=== PATIENT | male | born 1955 | race Caucasian/White ===

== ENCOUNTER 2023-05-28 14:05 | Inpatient (IN) | payer OTHER ==
[2023-05-28 15:46] LABS: BASO % 0.9 % (0-2.0); EOS % 0.8 % (0-4.5); HEMATOCRIT 37.9 % (35.4-49); HEMOGLOBIN 12.7 GM/dL (11.7-16.9); LYMPH % 26.3 % (8-40); MCH 30.7 pg (25.7-33.7); MCHC 33.4 g/dl (32.0-35.9); MEAN CELL VOLUME 92.1 fl (80-96); MEAN PLT VOLUME 9.1 fl (7.5-11.1); MONO % 5.4 % (3.8-10.2); NEUT % 66.6 % (42.8-82.8); PLATELET COUNT 353 10^3/uL (134-434); RBC 4.12 M/mm3 (4.00-5.60); RDW 13.6 % (11.9-15.9); WHITE BLOOD COUNT 9.8 K/mm3 (4.0-10.0)
[2023-05-28 15:58] LABS: EPI CELLS 6 /uL (0-25.1); HYALINE CASTS 0 /uL (0-3.1); PH,URINE 6.5 (5.0-8.0); URINE APPEARANCE CLOUDY; URINE BACTERIA 5 /uL (0-1359); URINE BILIRUBIN NEGATIVE (NEGATIVE); URINE COLOR YELLOW; URINE GLUCOSE (UA) NEGATIVE (NEGATIVE); URINE KETONE NEGATIVE (NEGATIVE); URINE LEUK ESTERASE NEGATIVE (NEGATIVE); URINE NITRITE NEGATIVE (NEGATIVE); URINE PROTEIN TRACE (NEGATIVE); URINE RBC 34 /uL (0-23.9); URINE WBC 4 /uL (0-25.8)
[2023-05-28 16:16] LABS: POTASSIUM 4.5 mmol/L (3.5-5.1)
[2023-05-28 16:18] LABS: CALCIUM 12.2 mg/dL (8.5-10.1)
[2023-05-28 16:19] LABS: BLOOD UREA NITROGEN 17.5 mg/dL (7-18)
[2023-05-28 16:22] LABS: CREATININE 1.3 mg/dL (0.55-1.3)
[2023-05-28 16:23] LABS: TOT PROT 8.3 g/dl (6.4-8.2)
[2023-05-28 16:24] LABS: BILIRUBIN,TOTAL 0.6 mg/dL (0.2-1)
[2023-05-29] MEDS: SODIUM CHLORIDE 0.45% 1,000 ML IV SCH ×2 (01:24→12:12)
[2023-05-29 07:23] LABS: BASO % 0.6 % (0-2.0); EOS % 1.7 % (0-4.5); HEMATOCRIT 36.1 % (35.4-49); HEMOGLOBIN 11.9 GM/dL (11.7-16.9); LYMPH % 25.2 % (8-40); MCH 30.1 pg (25.7-33.7); MEAN CELL VOLUME 91.3 fl (80-96); MEAN PLT VOLUME 9.6 fl (7.5-11.1); MONO % 4.4 % (3.8-10.2); NEUT % 68.1 % (42.8-82.8); PLATELET COUNT 358 10^3/uL (134-434); POTASSIUM 4.2 mmol/L (3.5-5.1); RBC 3.95 M/mm3 (4.00-5.60); RDW 13.5 % (11.9-15.9); WHITE BLOOD COUNT 9.4 K/mm3 (4.0-10.0)
[2023-05-29 07:33] LABS: ALBUMIN 2.8 g/dl (3.4-5.0); BLOOD UREA NITROGEN 19.8 mg/dL (7-18); CALCIUM 11.9 mg/dL (8.5-10.1); MAGNESIUM 2.7 mg/dL (1.8-2.4)
[2023-05-29 07:35] LABS: CREATININE 1.1 mg/dL (0.55-1.3); PHOSPHOROUS 3.3 mg/dL (2.5-4.9)
[2023-05-29 07:37] LABS: BILIRUBIN,TOTAL 0.6 mg/dL (0.2-1); TOT PROT 7.8 g/dl (6.4-8.2)
[2023-05-29] MEDS: ENOXAPARIN NA (PORCINE) 40 MG/0.4 ML DISP.SYRIN SQ SCH (12:08)
[2023-05-29 20:20] VITALS: BMI 28.9
[2023-05-29] MEDS: MINERAL OIL ENEMA 133 ML ENEMA RC ONE (22:09)
[2023-05-29] MEDS: FLU VACCINE (FLULAVAL) PF 60 MCG/0.5 ML SYRINGE 2023-2024 IM ONE (22:40)
[2023-05-30 09:37] LABS: BASO % 0.6 % (0-2.0); EOS % 1.6 % (0-4.5); HEMATOCRIT 34.1 % (35.4-49); HEMOGLOBIN 11.3 GM/dL (11.7-16.9); LYMPH % 28.1 % (8-40); MCH 30.1 pg (25.7-33.7); MEAN CELL VOLUME 91.2 fl (80-96); MEAN PLT VOLUME 9.4 fl (7.5-11.1); MONO % 4.2 % (3.8-10.2); NEUT % 65.5 % (42.8-82.8); PLATELET COUNT 298 10^3/uL (134-434); RBC 3.74 M/mm3 (4.00-5.60); RDW 13.2 % (11.9-15.9); WHITE BLOOD COUNT 7.5 K/mm3 (4.0-10.0)
[2023-05-30] MEDS: MINERAL OIL ENEMA 133 ML ENEMA RC ONE (09:50)
[2023-05-30 10:03] LABS: POTASSIUM 3.8 mmol/L (3.5-5.1)
[2023-05-30] MEDS: FLU VACCINE (FLULAVAL) PF 60 MCG/0.5 ML SYRINGE 2023-2024 IM ONE (10:04)
[2023-05-30 10:13] LABS: ALBUMIN 2.4 g/dl (3.4-5.0)
[2023-05-30 10:14] LABS: BILIRUBIN,TOTAL 0.7 mg/dL (0.2-1); TOT PROT 6.9 g/dl (6.4-8.2)
[2023-05-30 10:19] LABS: BLOOD UREA NITROGEN 20.9 mg/dL (7-18)
[2023-05-30 10:20] LABS: CALCIUM 11.1 mg/dL (8.5-10.1)
[2023-05-30 10:21] LABS: MAGNESIUM 2.9 mg/dL (1.8-2.4)
[2023-05-30] MEDS ORDERED: ACETAMINOPHEN 1000 MG/100 ML BAG IVPB PRN (12:36)
[2023-05-30] MEDS ORDERED: DEXTROSE 5%-WATER - 1,000 ML with POTASSIUM CHLORIDE 10 MEQ IV SCH (13:15)
[2023-05-30] MEDS: COLLAGENASE CLOSTRIDIUM HIST. 30 GRAMS TUBE TP SCH (14:54)
[2023-05-30] MEDS: POTASSIUM CHLORIDE 10 MEQ in DEXTROSE 5%-WATER - 1,000 ML IV SCH (14:55)
[2023-05-30] MEDS ORDERED: SODIUM CHLORIDE 0.45% 1,000 ML IV SCH (15:45)
[2023-05-30] MEDS: AMINO ACIDS 4.25%/D5W 1,000 ML IV SCH (16:25)
[2023-05-30] MEDS: DEXTROSE 5%-0.45% SALINE 1,000 ML IV SCH (16:26)
[2023-05-30] MEDS: THIAMINE HCL 200 MG/2 ML VIAL IVPB SCH (16:33)
[2023-05-30] MEDS: BISACODYL 10 MG SUPP.RECT PR ONE (17:13)
[2023-05-31 09:39] LABS: BASO % 0.4 % (0-2.0); EOS % 1.8 % (0-4.5); HEMATOCRIT 32.5 % (35.4-49); HEMOGLOBIN 10.7 GM/dL (11.7-16.9); LYMPH % 25.4 % (8-40); MCH 29.7 pg (25.7-33.7); MCHC 32.9 g/dl (32.0-35.9); MEAN CELL VOLUME 90.3 fl (80-96); MEAN PLT VOLUME 9.2 fl (7.5-11.1); MONO % 4.6 % (3.8-10.2); NEUT % 67.8 % (42.8-82.8); PLATELET COUNT 274 10^3/uL (134-434); RDW 12.9 % (11.9-15.9); WHITE BLOOD COUNT 7.8 K/mm3 (4.0-10.0)
[2023-05-31 09:55] LABS: POTASSIUM 3.4 mmol/L (3.5-5.1)
[2023-05-31 09:59] LABS: ALBUMIN 2.3 g/dl (3.4-5.0); BLOOD UREA NITROGEN 16.8 mg/dL (7-18); CALCIUM 10.6 mg/dL (8.5-10.1); MAGNESIUM 2.6 mg/dL (1.8-2.4)
[2023-05-31 10:04] LABS: BILIRUBIN,TOTAL 0.8 mg/dL (0.2-1); TOT PROT 6.5 g/dl (6.4-8.2)
[2023-05-31] MEDS: KCL 10 MEQ IVPB 10 MEQ/100 ML INFUS.BAG IVPB SCH (16:17)
[2023-05-31] MEDS: D5-1/2NS+20 MEQ KCL - 20 MEQ/1,000 ML INFUS.BAG IV SCH (17:25)
[2023-06-01 09:14] LABS: BASO % 0.4 % (0-2.0); EOS % 1.1 % (0-4.5); HEMATOCRIT 30.2 % (35.4-49); HEMOGLOBIN 10.2 GM/dL (11.7-16.9); LYMPH % 23.9 % (8-40); MCH 30.1 pg (25.7-33.7); MCHC 33.8 g/dl (32.0-35.9); MEAN PLT VOLUME 9.4 fl (7.5-11.1); MONO % 5.1 % (3.8-10.2); NEUT % 69.5 % (42.8-82.8); PLATELET COUNT 310 10^3/uL (134-434); RBC 3.39 M/mm3 (4.00-5.60); RDW 13.1 % (11.9-15.9); WHITE BLOOD COUNT 7.7 K/mm3 (4.0-10.0)
[2023-06-01 09:42] LABS: POTASSIUM 3.8 mmol/L (3.5-5.1)
[2023-06-01 09:57] LABS: CALCIUM 10.5 mg/dL (8.5-10.1)
[2023-06-01 09:59] LABS: ALBUMIN 2.2 g/dl (3.4-5.0); BLOOD UREA NITROGEN 13.4 mg/dL (7-18); MAGNESIUM 2.3 mg/dL (1.8-2.4)
[2023-06-01 10:01] LABS: CREATININE 0.9 mg/dL (0.55-1.3)
[2023-06-01 10:03] LABS: BILIRUBIN,TOTAL 1.1 mg/dL (0.2-1); TOT PROT 6.8 g/dl (6.4-8.2)
[2023-06-01] MEDS: PANTOPRAZOLE SODIUM 40 MG VIAL IVPUSH SCH (14:32)
[2023-06-01] MEDS: AMINO ACIDS 4.25%/D5W 1,000 ML IV SCH (14:32)
[2023-06-02 10:11] LABS: BASO % 0.3 % (0-2.0); EOS % 1.4 % (0-4.5); LYMPH % 27.3 % (8-40); MCH 30.6 pg (25.7-33.7); MCHC 34.5 g/dl (32.0-35.9); MEAN CELL VOLUME 88.6 fl (80-96); MEAN PLT VOLUME 9.2 fl (7.5-11.1); MONO % 5.1 % (3.8-10.2); NEUT % 65.9 % (42.8-82.8); PLATELET COUNT 309 10^3/uL (134-434); RBC 3.27 M/mm3 (4.00-5.60); WHITE BLOOD COUNT 7.5 K/mm3 (4.0-10.0)
[2023-06-02 10:49] LABS: POTASSIUM 3.6 mmol/L (3.5-5.1)
[2023-06-02 10:54] LABS: CALCIUM 10.6 mg/dL (8.5-10.1)
[2023-06-02 10:56] LABS: ALBUMIN 2.1 g/dl (3.4-5.0); BLOOD UREA NITROGEN 15.3 mg/dL (7-18)
[2023-06-02 10:58] LABS: CREATININE 0.9 mg/dL (0.55-1.3)
[2023-06-02 11:00] LABS: TOT PROT 6.8 g/dl (6.4-8.2)
[2023-06-03 10:30] LABS: INR 1.39 (0.83-1.09); PROTHROMBIN TIME (PATIENT) 16.1 SEC (9.7-13.0)
[2023-06-03] MEDS: ACETAMINOPHEN 1000 MG/100 ML BAG IVPB PRN (12:32)
[2023-06-03] MEDS: BISACODYL 10 MG SUPP.RECT PR ONE (12:33)
[2023-06-04 10:04] LABS: POTASSIUM 3.7 mmol/L (3.5-5.1)
[2023-06-04 10:12] LABS: CALCIUM 11.6 mg/dL (8.5-10.1)
[2023-06-04 10:13] LABS: ALBUMIN 2.3 g/dl (3.4-5.0); BLOOD UREA NITROGEN 18.9 mg/dL (7-18); HEMATOCRIT 32.1 % (35.4-49); MCH 30.4 pg (25.7-33.7); MCHC 34.3 g/dl (32.0-35.9); MEAN CELL VOLUME 88.6 fl (80-96); MEAN PLT VOLUME 9.9 fl (7.5-11.1); PLATELET COUNT 399 10^3/uL (134-434); RBC 3.62 M/mm3 (4.00-5.60); RDW 13.3 % (11.9-15.9)
[2023-06-04 10:16] LABS: CREATININE 0.8 mg/dL (0.55-1.3)
[2023-06-04 10:17] LABS: BILIRUBIN,TOTAL 0.7 mg/dL (0.2-1); TOT PROT 7.3 g/dl (6.4-8.2)
[2023-06-04 12:15] LABS: ANISOCYTOSIS 0; MACROCYTOSIS 0; OVALOCYTE 1+
[2023-06-05] MEDS: ACETAMINOPHEN 1000 MG/100 ML BAG IVPB PRN (09:47)
[2023-06-05 10:18] LABS: BASO % 0.4 % (0-2.0); EOS % 0.8 % (0-4.5); HEMATOCRIT 30.3 % (35.4-49); HEMOGLOBIN 10.5 GM/dL (11.7-16.9); LYMPH % 14.5 % (8-40); MCH 30.3 pg (25.7-33.7); MCHC 34.8 g/dl (32.0-35.9); MEAN CELL VOLUME 87.1 fl (80-96); MEAN PLT VOLUME 8.6 fl (7.5-11.1); NEUT % 80.3 % (42.8-82.8); PLATELET COUNT 370 10^3/uL (134-434); RBC 3.48 M/mm3 (4.00-5.60); RDW 13.2 % (11.9-15.9); WHITE BLOOD COUNT 8.7 K/mm3 (4.0-10.0)
[2023-06-05 10:45] LABS: POTASSIUM 3.2 mmol/L (3.5-5.1)
[2023-06-05 11:02] LABS: ALBUMIN 2.4 g/dl (3.4-5.0); BLOOD UREA NITROGEN 13.5 mg/dL (7-18)
[2023-06-05 11:03] LABS: BILIRUBIN,TOTAL 0.9 mg/dL (0.2-1); TOT PROT 7.1 g/dl (6.4-8.2)
[2023-06-05 11:04] LABS: CALCIUM 10.4 mg/dL (8.5-10.1)
[2023-06-05 11:05] LABS: CREATININE 0.7 mg/dL (0.55-1.3)
[2023-06-05] MEDS ORDERED: MIDAZOLAM HCL 2 MG/2 ML SINGLE DOSE VIAL ONE (11:46)
[2023-06-05] MEDS ORDERED: GLUCAGON 1 MG KIT ONE (11:46)
[2023-06-05] MEDS ORDERED: FENTANYL CITRATE/PF 50 MCG/ML VIAL ONE ×2 (11:46→12:21)
[2023-06-05] MEDS: MIDAZOLAM HCL 2 MG/2 ML SINGLE DOSE VIAL IVPB SCH (12:10)
[2023-06-05] MEDS: GLUCAGON 1 MG KIT IVPUSH ONE (12:17)
[2023-06-05 16:29] LABS: POTASSIUM 3.6 mmol/L (3.5-5.1)
[2023-06-05 16:31] LABS: CALCIUM 10.9 mg/dL (8.5-10.1)
[2023-06-05 16:32] LABS: ALBUMIN 2.4 g/dl (3.4-5.0); BLOOD UREA NITROGEN 13.6 mg/dL (7-18)
[2023-06-05 16:35] LABS: CREATININE 0.8 mg/dL (0.55-1.3)
[2023-06-05 16:36] LABS: TOT PROT 7.8 g/dl (6.4-8.2)
[2023-06-05] MEDS: KCL 10 MEQ IVPB 10 MEQ/100 ML INFUS.BAG IVPB SCH (18:42)
[2023-06-06 10:02] LABS: EOS % 0.7 % (0-4.5); HEMATOCRIT 32.1 % (35.4-49); HEMOGLOBIN 11.1 GM/dL (11.7-16.9); LYMPH % 14.7 % (8-40); MCH 29.7 pg (25.7-33.7); MCHC 34.4 g/dl (32.0-35.9); MEAN CELL VOLUME 86.3 fl (80-96); MEAN PLT VOLUME 7.8 fl (7.5-11.1); MONO % 3.3 % (3.8-10.2); NEUT % 80.3 % (42.8-82.8); PLATELET COUNT 409 10^3/uL (134-434); RBC 3.72 M/mm3 (4.00-5.60); RDW 13.4 % (11.9-15.9)
[2023-06-06 10:20] LABS: POTASSIUM 3.4 mmol/L (3.5-5.1)
[2023-06-06 10:23] LABS: CALCIUM 11.7 mg/dL (8.5-10.1)
[2023-06-06 10:24] LABS: ALBUMIN 2.4 g/dl (3.4-5.0); BLOOD UREA NITROGEN 12.9 mg/dL (7-18)
[2023-06-06 10:27] LABS: CREATININE 0.8 mg/dL (0.55-1.3)
[2023-06-06 10:29] LABS: BILIRUBIN,TOTAL 0.9 mg/dL (0.2-1); TOT PROT 7.4 g/dl (6.4-8.2)
[2023-06-06] MEDS: KCL 10 MEQ IVPB 10 MEQ/100 ML INFUS.BAG IVPB SCH (14:01)
[2023-06-07] MEDS: POLYETHYLENE GLYCOL (HEALTHYLAX) 3350 17 GM PACKET GT SCH (09:29)
[2023-06-07] MEDS: AMINO ACIDS/PROTEIN HYDROLYS 30 ML LIQUID.PKT GT SCH (09:32)
[2023-06-07] MEDS: ASCORBIC ACID 250 MG TABLET (FP) GT SCH (09:33)
[2023-06-07] MEDS: MULTIVIT-MINERALS ORAL LIQUID GT SCH (10:31)
[2023-06-07] MEDS: CINACALCET HCL 30 MG TAB (FP) PO SCH (10:35)
[2023-06-07 11:05] LABS: BASO % 0.5 % (0-2.0); EOS % 2.7 % (0-4.5); HEMOGLOBIN 10.3 GM/dL (11.7-16.9); LYMPH % 24.7 % (8-40); MCH 30.1 pg (25.7-33.7); MCHC 34.5 g/dl (32.0-35.9); MEAN CELL VOLUME 87.1 fl (80-96); MEAN PLT VOLUME 7.9 fl (7.5-11.1); MONO % 5.2 % (3.8-10.2); NEUT % 66.9 % (42.8-82.8); PLATELET COUNT 401 10^3/uL (134-434); RBC 3.44 M/mm3 (4.00-5.60); RDW 13.5 % (11.9-15.9); WHITE BLOOD COUNT 7.6 K/mm3 (4.0-10.0)
[2023-06-07 11:29] LABS: POTASSIUM 3.5 mmol/L (3.5-5.1)
[2023-06-07 11:32] LABS: ALBUMIN 2.2 g/dl (3.4-5.0); CALCIUM 11.2 mg/dL (8.5-10.1)
[2023-06-07 11:33] LABS: BLOOD UREA NITROGEN 14.4 mg/dL (7-18)
[2023-06-07 11:35] LABS: CREATININE 0.7 mg/dL (0.55-1.3)
[2023-06-07 11:37] LABS: BILIRUBIN,TOTAL 0.4 mg/dL (0.2-1); TOT PROT 6.9 g/dl (6.4-8.2)
[2023-06-07] MEDS ORDERED: POLYETHYLENE GLYCOL (HEALTHYLAX) 3350 17 GM PACKET GT SCH (22:00)
[2023-06-07] MEDS: CINACALCET HCL PEG SCH (22:56)
[2023-06-08 15:42] VITALS: BP 128/74; PULSE 80; RESP 18; TEMP 98.5
== END 2023-06-08 11:24 | DRG 56 ==
LOC: JER 14:05 → JERBED 22:05 → J5S 05-29 19:40 → OBSVTOIN 05-30 10:16 → J5S 06-04 17:22
PROVIDERS: ADMIT Internal Medicine; ATTEND Internal Medicine
PROC: 0Y9K3ZZ Drainage of Right Ankle Region, Percutaneous Approach (ICD-10-PCS; principal; 2023-06-01)
PROC: 0DH63UZ Insertion of Feeding Device into Stomach, Percutaneous Approach (ICD-10-PCS; 2023-06-05)
DX: G30.9 Alzheimer's disease, unspecified (principal); R53.2 Functional quadriplegia; E87.0 Hyperosmolality and hypernatremia; F02.80 Dementia in other diseases classified elsewhere, unspecified severity, without behavioral disturbance, psychotic disturbance, mood disturbance, and anxiety; E78.5 Hyperlipidemia, unspecified; R62.7 Adult failure to thrive; Z68.28 Body mass index [BMI] 28.0-28.9, adult; R73.9 Hyperglycemia, unspecified; E83.52 Hypercalcemia; E86.0 Dehydration; L89.610 Pressure ulcer of right heel, unstageable; R13.10 Dysphagia, unspecified; K59.00 Constipation, unspecified; K76.0 Fatty (change of) liver, not elsewhere classified
CPT/HCPCS: 36415; 49440; 70450-TC; 71045-TC-FY; 71250-TC; 74018-TC-FY; 74230-TC-FY; 76705-TC; 80053; 81003; 82310; 82550; 82553; 82728; 82962; 82977; 83540; 83550; 83735; 83970; 84100; 85025; 85610; 86704; 86705; 86708; 86803; 87070; 87086; 87205; 87340; 87517; 87635; 90686; 92611-GN; 93005; 93010; 99285-25; G0008; G0378; J0131

== ENCOUNTER 2023-09-22 18:18 | Inpatient (IN) | payer OTHER ==
[2023-09-22] MEDS ORDERED: ACETAMINOPHEN INJECTION 100 ML IVPB ONE (19:40)
[2023-09-22 20:48] LABS: HEMATOCRIT 29.6 % (35.4-49); HEMOGLOBIN 9.9 GM/dL (11.7-16.9); RBC 3.53 M/mm3 (4.00-5.60); WHITE BLOOD COUNT 9.9 K/mm3 (4.0-10.0)
[2023-09-22 20:49] LABS: BASO % 0.4 % (0-2.0); LYMPH % 32.2 % (8-40); MCHC 33.3 g/dl (32.0-35.9); MEAN PLT VOLUME 8.1 fl (7.5-11.1); MONO % 5.3 % (3.8-10.2); NEUT % 61.1 % (42.8-82.8); PLATELET COUNT 389 10^3/uL (134-434); RDW 17.1 % (11.9-15.9)
[2023-09-22 20:52] LABS: EPI CELLS 7 /uL (0-25.1); HYALINE CASTS 6 /uL (0-3.1); URINE APPEARANCE CLOUDY; URINE BACTERIA 2783 /uL (0-1359); URINE BILIRUBIN NEGATIVE (NEGATIVE); URINE COLOR YELLOW; URINE GLUCOSE (UA) NEGATIVE (NEGATIVE); URINE KETONE NEGATIVE (NEGATIVE); URINE LEUK ESTERASE 2+ (NEGATIVE); URINE NITRITE NEGATIVE (NEGATIVE); URINE PROTEIN 1+ (NEGATIVE); URINE WBC 769 /uL (0-25.8)
[2023-09-22 21:01] LABS: INR 1.17 (0.83-1.09); PROTHROMBIN TIME (PATIENT) 13.2 SEC (9.7-13.0)
[2023-09-22 21:08] LABS: CHLORIDE 104 mmol/L (98-107); POTASSIUM 4.8 mmol/L (3.5-5.1); SODIUM 137 mmol/L (136-145)
[2023-09-22] MEDS: SODIUM CHLORIDE 0.9% 500 ML INFUS.BAG IV ONE (21:10)
[2023-09-22] MEDS: ACETAMINOPHEN 1000 MG/100 ML BAG IVPB ONE (21:11)
[2023-09-22] MEDS ORDERED: cefTRIAXone SODIUM 1 GM VIAL ONE (21:12)
[2023-09-22 21:13] LABS: CALCIUM 9.2 mg/dL (8.5-10.1)
[2023-09-22 21:14] LABS: ALBUMIN 3.2 g/dl (3.4-5.0); ANION GAP 7 mmol/L (4-13); BLOOD UREA NITROGEN 16.6 mg/dL (7-18); CO2 27 mmol/L (21-32); GLUCOSE,RANDOM 103 mg/dL (74-106); MAGNESIUM 1.9 mg/dL (1.8-2.4)
[2023-09-22 21:17] LABS: CREATININE 0.9 mg/dL (0.55-1.3); SGOT/AST 30 U/L (15-37); SGPT/ALT 22 U/L (13-61)
[2023-09-22 21:18] LABS: BILIRUBIN,TOTAL 0.6 mg/dL (0.2-1); TOT PROT 8.7 g/dl (6.4-8.2)
[2023-09-22 21:20] LABS: ALK PHOS 88 U/L (45-117)
[2023-09-22 22:03] LABS: URINE RBC 28 /uL (0-23.9)
[2023-09-22 22:04] LABS: URINE CRYSTALS MODERATE /hpf
[2023-09-22] MEDS ORDERED: KETOROLAC TROMETHAMINE 30 MG/1 ML VIAL ONE (22:44)
[2023-09-22] MEDS: KETOROLAC TROMETHAMINE 30 MG/1 ML VIAL IVPUSH ONE (22:48)
[2023-09-23] MEDS: methylPREDNISolone NA SUCC 40 MG/1 ML VIAL IVPUSH SCH (00:39)
[2023-09-23] MEDS: REMDESIVIR 200 MG in SODIUM CHLORIDE 250 ML IVPB ONE (00:39)
[2023-09-23] MEDS ORDERED: ASCORBIC ACID 500 MG TABLET (FP) ONE (01:32)
[2023-09-23] MEDS: CINACALCET HCL 30 MG TAB (FP) PO SCH (01:42)
[2023-09-23] MEDS: ASCORBIC ACID 500 MG TABLET (FP) GT SCH (01:42)
[2023-09-23] MEDS ORDERED: methylPREDNISolone NA SUCC 40 MG/1 ML VIAL ONE (03:30)
[2023-09-23 07:19] LABS: HEMATOCRIT 29.7 % (35.4-49); HEMOGLOBIN 9.4 GM/dL (11.7-16.9); MCH 26.9 pg (25.7-33.7); MCHC 31.7 g/dl (32.0-35.9); MEAN CELL VOLUME 84.8 fl (80-96); MEAN PLT VOLUME 8.1 fl (7.5-11.1); PLATELET COUNT 359 10^3/uL (134-434); RDW 17.2 % (11.9-15.9); WHITE BLOOD COUNT 10.1 K/mm3 (4.0-10.0)
[2023-09-23 07:36] LABS: POTASSIUM 4.5 mmol/L (3.5-5.1)
[2023-09-23 07:42] LABS: CALCIUM 8.8 mg/dL (8.5-10.1)
[2023-09-23 07:43] LABS: BLOOD UREA NITROGEN 17.7 mg/dL (7-18); MAGNESIUM 1.9 mg/dL (1.8-2.4)
[2023-09-23 07:45] LABS: CREATININE 0.9 mg/dL (0.55-1.3)
[2023-09-23 07:46] LABS: BILIRUBIN,TOTAL 0.4 mg/dL (0.2-1); PHOSPHOROUS 2.8 mg/dL (2.5-4.9); TOT PROT 8.3 g/dl (6.4-8.2)
[2023-09-23 08:25] LABS: IRON SERUM 15 ug/dL (50-175); TOTAL IRON BINDING CAPACITY 252 ug/dL (250-450)
[2023-09-23] MEDS ORDERED: ACETAMINOPHEN 325 MG TABLET (FP) ONE (08:37)
[2023-09-23] MEDS: ACETAMINOPHEN 650 MG/20.3 ML ORAL SOLUTION (CUPS) PO PRN (08:48)
[2023-09-23] MEDS ORDERED: COLLAGENASE CLOSTRIDIUM HIST. 30 GRAMS TUBE TP SCH (10:00)
[2023-09-23] MEDS ORDERED: ACETAMINOPHEN 650 MG/20.3 ML ORAL SOLUTION (CUPS) PEG PRN (10:30)
[2023-09-23] MEDS: CEFTRIAXONE 1 GM in DEXTROSE 5%-WATER - 50 ML IVPB SCH (11:00)
[2023-09-23] MEDS: REMDESIVIR 100 MG in SODIUM CHLORIDE 250 ML IVPB SCH (11:26)
[2023-09-23] MEDS: PANTOPRAZOLE 20 MG TABLET PO SCH (11:27)
[2023-09-23] MEDS: ZINC SULFATE 220 MG CAPSULE (FP) GT SCH (11:27)
[2023-09-23] MEDS: MULTIVITAMINS (DAILY MVI) TABLET (FP) PO SCH (11:28)
[2023-09-23] MEDS: POLYETHYLENE GLYCOL (HEALTHYLAX) 3350 17 GM PACKET GT SCH (11:30)
[2023-09-23] MEDS: ENOXAPARIN NA (PORCINE) 40 MG/0.4 ML DISP.SYRIN SQ SCH (11:32)
[2023-09-23] MEDS: LACTATED RINGERS SOLUTION 1,000 ML/1,000 ML INFUS.BAG IV SCH (14:40)
[2023-09-23] MEDS: AMINO ACIDS/PROTEIN HYDROLYS 30 ML LIQUID.PKT GT SCH (15:16)
[2023-09-23] MEDS: DONEPEZIL HCL 5 MG TABLET (FP) GT SCH (21:46)
[2023-09-24 09:33] LABS: BASO % 0.1 % (0-2.0); EOS % 0.2 % (0-4.5); HEMATOCRIT 25.3 % (35.4-49); HEMOGLOBIN 8.2 GM/dL (11.7-16.9); MCH 27.5 pg (25.7-33.7); MCHC 32.6 g/dl (32.0-35.9); MEAN CELL VOLUME 84.5 fl (80-96); MEAN PLT VOLUME 7.8 fl (7.5-11.1); MONO % 6.4 % (3.8-10.2); NEUT % 62.3 % (42.8-82.8); PLATELET COUNT 317 10^3/uL (134-434); RDW 17.1 % (11.9-15.9); WHITE BLOOD COUNT 7.5 K/mm3 (4.0-10.0)
[2023-09-24 09:55] LABS: POTASSIUM 3.9 mmol/L (3.5-5.1)
[2023-09-24] MEDS ORDERED: DEXAMETHASONE 4 MG TABLET (FP) PEG SCH (10:00)
[2023-09-24 10:16] LABS: CALCIUM 8.5 mg/dL (8.5-10.1)
[2023-09-24 10:17] LABS: ALBUMIN 2.6 g/dl (3.4-5.0); BLOOD UREA NITROGEN 20.1 mg/dL (7-18)
[2023-09-24 10:20] LABS: CREATININE 0.7 mg/dL (0.55-1.3)
[2023-09-24 10:21] LABS: BILIRUBIN,TOTAL 0.2 mg/dL (0.2-1); TOT PROT 7.2 g/dl (6.4-8.2)
[2023-09-24 13:17] VITALS: BMI 31.8
[2023-09-24 13:36] VITALS: RESP 18
[2023-09-24] MEDS: REMDESIVIR 100 MG in SODIUM CHLORIDE 270 ML IVPB ONE (17:50)
[2023-09-25 08:51] LABS: HEMATOCRIT 27.7 % (35.4-49); HEMOGLOBIN 9.1 GM/dL (11.7-16.9); MCH 27.4 pg (25.7-33.7); MCHC 32.7 g/dl (32.0-35.9); MEAN CELL VOLUME 83.9 fl (80-96); MEAN PLT VOLUME 7.5 fl (7.5-11.1); PLATELET COUNT 361 10^3/uL (134-434); RDW 17.3 % (11.9-15.9); WHITE BLOOD COUNT 5.3 K/mm3 (4.0-10.0)
[2023-09-25 09:08] LABS: POTASSIUM 3.9 mmol/L (3.5-5.1)
[2023-09-25 09:12] LABS: ALBUMIN 2.7 g/dl (3.4-5.0); BLOOD UREA NITROGEN 18.6 mg/dL (7-18); CALCIUM 8.3 mg/dL (8.5-10.1)
[2023-09-25 09:14] LABS: CREATININE 0.7 mg/dL (0.55-1.3)
[2023-09-25 09:17] LABS: BILIRUBIN,TOTAL 0.2 mg/dL (0.2-1); TOT PROT 7.3 g/dl (6.4-8.2)
[2023-09-25] MEDS ORDERED: AMPICILLIN - 1 GM in SODIUM CHLORIDE 100 ML IVPB SCH (21:00)
[2023-09-26 09:38] LABS: HEMATOCRIT 26.8 % (35.4-49); HEMOGLOBIN 8.9 GM/dL (11.7-16.9); MCH 27.6 pg (25.7-33.7); MCHC 33.2 g/dl (32.0-35.9); MEAN CELL VOLUME 83.1 fl (80-96); MEAN PLT VOLUME 7.3 fl (7.5-11.1); PLATELET COUNT 352 10^3/uL (134-434); RBC 3.22 M/mm3 (4.00-5.60); RDW 16.8 % (11.9-15.9)
[2023-09-26 09:54] LABS: POTASSIUM 3.8 mmol/L (3.5-5.1)
[2023-09-26 09:56] LABS: BLOOD UREA NITROGEN 16.7 mg/dL (7-18); CALCIUM 8.5 mg/dL (8.5-10.1)
[2023-09-26 09:59] LABS: CREATININE 0.7 mg/dL (0.55-1.3)
[2023-09-26 11:10] VITALS: BP 122/66; PULSE 92; TEMP 98.7
== END 2023-09-26 15:41 | DRG 871 ==
LOC: JER 18:18 → JERBED 22:27 → J6S 09-23 09:47
PROVIDERS: ADMIT Internal Medicine; ATTEND Internal Medicine
PROC: XW033E5 Introduction of Remdesivir Anti-infective into Peripheral Vein, Percutaneous Approach, New Technology Group 5 (ICD-10-PCS; principal; 2023-09-22)
DX: A41.9 Sepsis, unspecified organism (principal); U07.1 COVID-19; N39.0 Urinary tract infection, site not specified; E78.5 Hyperlipidemia, unspecified; G30.9 Alzheimer's disease, unspecified; F02.80 Dementia in other diseases classified elsewhere, unspecified severity, without behavioral disturbance, psychotic disturbance, mood disturbance, and anxiety; E11.9 Type 2 diabetes mellitus without complications; D50.9 Iron deficiency anemia, unspecified; R13.10 Dysphagia, unspecified; B95.2 Enterococcus as the cause of diseases classified elsewhere; Z93.1 Gastrostomy status
CPT/HCPCS: 0241U-QW; 36415; 71045-TC-FY; 71250-TC; 74018-TC-FY; 76775-TC; 80048; 80053; 81003; 82272; 82550; 82962; 83010; 83540; 83550; 83605; 83615; 83735; 84100; 84484; 85025; 85027; 85045; 85610; 85730; 86140; 87040; 87086; 87186; 87635; 93005; 93010; 99285-25; J0131; J0248

== ENCOUNTER 2024-07-16 11:08 | Inpatient (IN) | payer OTHER ==
[2024-07-16 12:51] LABS: ABSOLUTE IMMATURE GRANULOCYTES 0.04 x10^3/uL (0.0-0.031); BASOPHILS # 0.02 x10^3/uL (0.01-0.08); EOSINOPHILS # 0.33 x10^3/uL (0.04-0.54); HEMATOCRIT 44.3 % (40.1-51.0); HEMOGLOBIN 13.8 g/dL (13.7-17.5); MCHC 31.2 g/dl (32.3-36.5); MEAN CELL VOLUME 96.5 fl (79.0-92.2); MEAN PLT VOLUME 12.1 fl (9.4-12.4); MONOCYTE # 0.53 x10^3/uL (0.30-0.82); MONOCYTE % 4.8 % (5.3-12.2); PLATELET COUNT 246 x10^3/uL (163-337); RDW 13.5 % (12.2-16.4)
[2024-07-16 12:56] LABS: VENOUS BASE EXCESS -0.5 mmol/L (-2-2); VENOUS O2 SATURATION 97.6 % (70-80); VENOUS PH 7.421 (7.310-7.410)
[2024-07-16 13:01] LABS: INR 1.07 (0.83-1.09); PROTHROMBIN TIME (PATIENT) 11.8 SEC (9.7-13.0)
[2024-07-16 13:19] LABS: ALBUMIN 3.3 g/dl (3.4-5.0); BLOOD UREA NITROGEN 29.2 mg/dL (7-18); CALCIUM 10.2 mg/dL (8.5-10.1)
[2024-07-16 13:23] LABS: CREATININE 1.3 mg/dL (0.55-1.3)
[2024-07-16 13:24] LABS: BILIRUBIN,TOTAL 0.3 mg/dL (0.2-1); TOT PROT 8.2 g/dl (6.4-8.2)
[2024-07-16] MEDS ORDERED: ACETAMINOPHEN INJECTION 100 ML ONE (13:25)
[2024-07-16] MEDS: ACETAMINOPHEN 1000 MG/100 ML BAG IVPB ONE (13:42)
[2024-07-16] MEDS: LACTATED RINGERS SOLUTION 1000 ML INFUS.BAG IV ONE ×2 (13:42→18:27)
[2024-07-16 14:15] LABS: HCV DIAGNOSTIC IN-HOUSE W/RFLX NON-REACTIVE (NONREACTIVE); HIV INTERPRETATION NEGATIVE (NEGATIVE)
[2024-07-16 15:00] LABS: EPI CELLS 0 /uL (0-25.1); HYALINE CASTS 1 /uL (0-3.1); PH,URINE 6.5 (5.0-8.0); URINE APPEARANCE CLOUDY; URINE BACTERIA >9,000 /uL (0-1359); URINE BILIRUBIN NEGATIVE (NEGATIVE); URINE COLOR YELLOW; URINE GLUCOSE (UA) NEGATIVE (NEGATIVE); URINE KETONE TRACE (NEGATIVE); URINE LEUK ESTERASE 1+ (NEGATIVE); URINE NITRITE NEGATIVE (NEGATIVE); URINE PROTEIN 1+ (NEGATIVE); URINE RBC 764 /uL (0-23.9); URINE WBC 361 /uL (0-25.8)
[2024-07-16] MEDS ORDERED: CEFTRIAXONE 1 G/50 ML PREMIX 50 ML IVPB ONE (15:40)
[2024-07-16] MEDS: OSELTAMIVIR PHOSPHATE 75 MG CAPSULE PO ONE (17:05)
[2024-07-16] MEDS: OSELTAMIVIR PHOSPHATE 6 MG/1 ML PO ONE (17:59)
[2024-07-16] MEDS: SODIUM CHLORIDE 0.45% 1,000 ML IV SCH (18:40)
[2024-07-16] MEDS: LACTATED RINGERS SOLUTION 1,000 ML/1,000 ML INFUS.BAG IV SCH (19:27)
[2024-07-16 20:21] VITALS: BMI 26.9
[2024-07-16] MEDS: CINACALCET HCL 30 MG TAB (FP) PO SCH (21:50)
[2024-07-16] MEDS: ARTIFICIAL TEARS OPHTHALMIC DROPS OU SCH (21:50)
[2024-07-16] MEDS: OSELTAMIVIR PHOSPHATE 75 MG CAPSULE PEG SCH (21:51)
[2024-07-16] MEDS ORDERED: PATIENT'S OWN MEDICATION (NON-FORMULARY) (Aa/Hydrolyzed Collagen, Whey [Lps 15-30 Liquid] GT SCH (22:00)
[2024-07-16] MEDS ORDERED: PATIENT'S OWN MEDICATION (NON-FORMULARY) (Cran/Vitc/Mannose/Fos/Bromeln [Uti-Stat Liquid] GT SCH (22:00)
[2024-07-17] MEDS: PIPERACILLIN/TAZOB 3.375 GM 3.375 GM in DEXTROSE 5%-WATER - 50 ML IVPB SCH (01:08)
[2024-07-17 09:31] LABS: HEMATOCRIT 41.2 % (40.1-51.0); HEMOGLOBIN 12.7 g/dL (13.7-17.5); MCHC 30.8 g/dl (32.3-36.5); MEAN CELL VOLUME 97.6 fl (79.0-92.2); MEAN PLT VOLUME 12.4 fl (9.4-12.4); PLATELET COUNT 221 x10^3/uL (163-337); RDW 13.5 % (12.2-16.4)
[2024-07-17 09:49] LABS: CHLORIDE 126 mmol/L (98-107); POTASSIUM 3.8 mmol/L (3.5-5.1); SODIUM 157 mmol/L (136-145)
[2024-07-17] MEDS ORDERED: PATIENT'S OWN MEDICATION (NON-FORMULARY) (Omeprazole 20 MG Capsule.Dr) GT SCH (10:00)
[2024-07-17] MEDS ORDERED: CEFTRIAXONE 1 GM in DEXTROSE 5%-WATER - 50 ML IVPB SCH (10:00)
[2024-07-17 10:03] LABS: ANION GAP 5 mmol/L (4-13); CO2 26 mmol/L (21-32); GLUCOSE,RANDOM 101 mg/dL (74-106)
[2024-07-17] MEDS: ASCORBIC ACID 250 MG TABLET (FP) GT SCH (10:03)
[2024-07-17] MEDS: ENOXAPARIN NA (PORCINE) 40 MG/0.4 ML DISP.SYRIN SQ SCH (10:03)
[2024-07-17] MEDS: FAMOTIDINE 20 MG/2.5 ML ORAL LIQUID GT SCH (10:03)
[2024-07-17] MEDS: POLYETHYLENE GLYCOL (HEALTHYLAX) 3350 17 GM PACKET GT SCH (10:03)
[2024-07-17 10:04] LABS: CALCIUM 9.5 mg/dL (8.5-10.1); MAGNESIUM 2.5 mg/dL (1.8-2.4)
[2024-07-17 10:06] LABS: CREATININE 1.2 mg/dL (0.55-1.3); PHOSPHOROUS 3.3 mg/dL (2.5-4.9); SGOT/AST 31 U/L (15-37); SGPT/ALT 75 U/L (13-61)
[2024-07-17 10:08] LABS: ALK PHOS 77 U/L (45-117); BILIRUBIN,TOTAL 0.6 mg/dL (0.2-1); TOT PROT 7.2 g/dl (6.4-8.2)
[2024-07-17] MEDS: SODIUM CHLORIDE 0.45% 1,000 ML IV SCH ×2 (13:19→17:43)
[2024-07-17] MEDS: CINACALCET HCL PEG SCH (14:45)
[2024-07-17 19:56] LABS: BLOOD UREA NITROGEN 24.3 mg/dL (7-18); CALCIUM 9.3 mg/dL (8.5-10.1)
[2024-07-17 19:57] LABS: POTASSIUM 3.7 mmol/L (3.5-5.1)
[2024-07-17 19:59] LABS: CREATININE 1.4 mg/dL (0.55-1.3)
[2024-07-18] MEDS: CEFTRIAXONE 1 G/50 ML PREMIX 50 ML IVPB ONE (09:08)
[2024-07-18 10:13] LABS: ABSOLUTE IMMATURE GRANULOCYTES 0.02 x10^3/uL (0.0-0.031); BASOPHILS # 0.01 x10^3/uL (0.01-0.08); EOSINOPHIL % 3.8 % (0.8-7.0); EOSINOPHILS # 0.31 x10^3/uL (0.04-0.54); HEMATOCRIT 38.4 % (40.1-51.0); HEMOGLOBIN 11.8 g/dL (13.7-17.5); MCHC 30.7 g/dl (32.3-36.5); MEAN PLT VOLUME 12.4 fl (9.4-12.4); MONOCYTE # 0.44 x10^3/uL (0.30-0.82); MONOCYTE % 5.4 % (5.3-12.2); PLATELET COUNT 230 x10^3/uL (163-337); RDW 13.2 % (12.2-16.4)
[2024-07-18 10:41] LABS: POTASSIUM 3.6 mmol/L (3.5-5.1)
[2024-07-18 10:50] LABS: BLOOD UREA NITROGEN 24.7 mg/dL (7-18)
[2024-07-18 10:52] LABS: CALCIUM 9.4 mg/dL (8.5-10.1)
[2024-07-18 10:53] LABS: ALBUMIN 2.9 g/dl (3.4-5.0); MAGNESIUM 2.6 mg/dL (1.8-2.4)
[2024-07-18 10:56] LABS: CREATININE 1.4 mg/dL (0.55-1.3); PHOSPHOROUS 2.8 mg/dL (2.5-4.9)
[2024-07-18 10:57] LABS: BILIRUBIN,TOTAL 0.8 mg/dL (0.2-1)
[2024-07-18 10:58] LABS: TOT PROT 7.2 g/dl (6.4-8.2)
[2024-07-18 19:43] LABS: POTASSIUM 3.5 mmol/L (3.5-5.1)
[2024-07-18 19:45] LABS: BLOOD UREA NITROGEN 21.3 mg/dL (7-18)
[2024-07-18 19:48] LABS: CREATININE 1.3 mg/dL (0.55-1.3)
[2024-07-18] MEDS: OSELTAMIVIR PHOSPHATE 6 MG/1 ML PEG SCH (22:14)
[2024-07-19] MEDS: PIPERACILLIN/TAZOB 3.375 GM 3.375 GM in DEXTROSE 5%-WATER - 50 ML IVPB SCH (05:26)
[2024-07-19] MEDS: DEXTROSE 5%-0.45% SALINE 1,000 ML IV SCH (05:28)
[2024-07-19 09:38] LABS: POTASSIUM 3.5 mmol/L (3.5-5.1)
[2024-07-19 09:48] LABS: ABSOLUTE IMMATURE GRANULOCYTES 0.04 x10^3/uL (0.0-0.031); BASOPHILS # 0.01 x10^3/uL (0.01-0.08); EOSINOPHIL % 3.5 % (0.8-7.0); HEMATOCRIT 40.6 % (40.1-51.0); HEMOGLOBIN 12.5 g/dL (13.7-17.5); MCHC 30.8 g/dl (32.3-36.5); MEAN CELL VOLUME 97.1 fl (79.0-92.2); MEAN PLT VOLUME 12.3 fl (9.4-12.4); MONOCYTE # 0.43 x10^3/uL (0.30-0.82); PLATELET COUNT 259 x10^3/uL (163-337); RDW 13.5 % (12.2-16.4)
[2024-07-19 10:01] LABS: CALCIUM 9.2 mg/dL (8.5-10.1)
[2024-07-19 10:02] LABS: BLOOD UREA NITROGEN 19.5 mg/dL (7-18)
[2024-07-19 10:05] LABS: CREATININE 1.3 mg/dL (0.55-1.3)
[2024-07-19 10:07] LABS: BILIRUBIN,TOTAL 0.6 mg/dL (0.2-1); TOT PROT 7.6 g/dl (6.4-8.2)
[2024-07-19] MEDS: SODIUM CHLORIDE 0.45% 1,000 ML IV SCH (16:59)
[2024-07-19] MEDS: ALBUTEROL SO4 2.5/IPRATROPIUM 0.5 INH SOL 3 ML VIAL.NEB. NEB SCH (18:25)
[2024-07-20 08:31] LABS: HEMATOCRIT 39.5 % (40.1-51.0); HEMOGLOBIN 11.9 g/dL (13.7-17.5); MCHC 30.1 g/dl (32.3-36.5); MEAN CELL VOLUME 98.8 fl (79.0-92.2); MEAN PLT VOLUME 13.5 fl (9.4-12.4); PLATELET COUNT 171 x10^3/uL (163-337); RDW 13.7 % (12.2-16.4)
[2024-07-20 09:35] LABS: POTASSIUM 3.5 mmol/L (3.5-5.1)
[2024-07-20 09:46] LABS: BILIRUBIN,TOTAL 0.4 mg/dL (0.2-1)
[2024-07-20] MEDS: DEXTROSE 5%-WATER - 1,000 ML IV SCH (09:53)
[2024-07-20 10:05] LABS: ALBUMIN 2.8 g/dl (3.4-5.0); BLOOD UREA NITROGEN 16.7 mg/dL (7-18); CALCIUM 8.6 mg/dL (8.5-10.1); MAGNESIUM 2.4 mg/dL (1.8-2.4)
[2024-07-20 10:08] LABS: CREATININE 1.2 mg/dL (0.55-1.3); PHOSPHOROUS 2.6 mg/dL (2.5-4.9)
[2024-07-20 10:10] LABS: TOT PROT 7.2 g/dl (6.4-8.2)
[2024-07-21 10:02] LABS: ABSOLUTE IMMATURE GRANULOCYTES 0.02 x10^3/uL (0.0-0.031); BASOPHILS # 0.02 x10^3/uL (0.01-0.08); EOSINOPHIL % 3.2 % (0.8-7.0); HEMOGLOBIN 11.9 g/dL (13.7-17.5); MCHC 31.3 g/dl (32.3-36.5); MONOCYTE # 0.39 x10^3/uL (0.30-0.82); MONOCYTE % 4.2 % (5.3-12.2); PLATELET COUNT 255 x10^3/uL (163-337); RDW 13.6 % (12.2-16.4)
[2024-07-21 10:24] LABS: POTASSIUM 3.1 mmol/L (3.5-5.1)
[2024-07-21 10:29] LABS: BLOOD UREA NITROGEN 14.3 mg/dL (7-18); CALCIUM 8.7 mg/dL (8.5-10.1)
[2024-07-21 10:30] LABS: ALBUMIN 2.9 g/dl (3.4-5.0); MAGNESIUM 2.2 mg/dL (1.8-2.4)
[2024-07-21 10:32] LABS: BILIRUBIN,TOTAL 0.7 mg/dL (0.2-1)
[2024-07-21 10:33] LABS: CREATININE 1.1 mg/dL (0.55-1.3); TOT PROT 7.1 g/dl (6.4-8.2)
[2024-07-21 10:34] LABS: PHOSPHOROUS 3.3 mg/dL (2.5-4.9)
[2024-07-21] MEDS: POTASSIUM CHLORIDE ORAL LIQUID 20 MEQ/15 ML GT ONE (11:17)
[2024-07-22] MEDS: POTASSIUM CHLORIDE ORAL LIQUID 20 MEQ/15 ML GT ONE (06:11)
[2024-07-22 09:54] LABS: BLOOD UREA NITROGEN 14.6 mg/dL (7-18); CALCIUM 9.4 mg/dL (8.5-10.1); POTASSIUM 4.4 mmol/L (3.5-5.1)
[2024-07-22 21:46] LABS: POTASSIUM 4.2 mmol/L (3.5-5.1)
[2024-07-22 21:49] LABS: BLOOD UREA NITROGEN 15.2 mg/dL (7-18); CALCIUM 9.7 mg/dL (8.5-10.1)
[2024-07-22 21:53] LABS: CREATININE 1.1 mg/dL (0.55-1.3)
[2024-07-23 08:31] LABS: ABSOLUTE IMMATURE GRANULOCYTES 0.05 x10^3/uL (0.0-0.031); BASOPHILS # 0.02 x10^3/uL (0.01-0.08); EOSINOPHIL % 3.7 % (0.8-7.0); EOSINOPHILS # 0.38 x10^3/uL (0.04-0.54); HEMATOCRIT 39.7 % (40.1-51.0); HEMOGLOBIN 12.1 g/dL (13.7-17.5); MCHC 30.5 g/dl (32.3-36.5); MEAN CELL VOLUME 97.3 fl (79.0-92.2); MEAN PLT VOLUME 12.6 fl (9.4-12.4); MONOCYTE # 0.41 x10^3/uL (0.30-0.82); PLATELET COUNT 201 x10^3/uL (163-337)
[2024-07-23 09:08] LABS: BLOOD UREA NITROGEN 17.7 mg/dL (7-18); MAGNESIUM 2.6 mg/dL (1.8-2.4)
[2024-07-23] MEDS: DEXTROSE 5%-WATER - 1,000 ML IV SCH (09:09)
[2024-07-23 09:11] LABS: CREATININE 1.2 mg/dL (0.55-1.3)
[2024-07-23 09:12] LABS: PHOSPHOROUS 3.7 mg/dL (2.5-4.9)
[2024-07-23 09:13] LABS: TOT PROT 7.4 g/dl (6.4-8.2)
[2024-07-23 09:14] LABS: BILIRUBIN,TOTAL 0.4 mg/dL (0.2-1)
[2024-07-23 22:40] VITALS: RESP 18
[2024-07-24] MEDS: ACETAMINOPHEN 1000 MG/100 ML BAG IVPB ONE (01:48)
[2024-07-24 08:55] LABS: ABSOLUTE IMMATURE GRANULOCYTES 0.02 x10^3/uL (0.0-0.031); BASOPHILS # 0.01 x10^3/uL (0.01-0.08); EOSINOPHIL % 3.8 % (0.8-7.0); EOSINOPHILS # 0.35 x10^3/uL (0.04-0.54); HEMATOCRIT 38.8 % (40.1-51.0); HEMOGLOBIN 11.9 g/dL (13.7-17.5); MCHC 30.7 g/dl (32.3-36.5); MEAN CELL VOLUME 97.7 fl (79.0-92.2); MEAN PLT VOLUME 12.5 fl (9.4-12.4); MONOCYTE # 0.39 x10^3/uL (0.30-0.82); MONOCYTE % 4.2 % (5.3-12.2); PLATELET COUNT 238 x10^3/uL (163-337); RDW 13.9 % (12.2-16.4)
[2024-07-24 09:26] LABS: POTASSIUM 3.8 mmol/L (3.5-5.1)
[2024-07-24 09:50] LABS: CALCIUM 9.4 mg/dL (8.5-10.1)
[2024-07-24 09:51] LABS: ALBUMIN 2.8 g/dl (3.4-5.0); BLOOD UREA NITROGEN 18.6 mg/dL (7-18); MAGNESIUM 2.5 mg/dL (1.8-2.4)
[2024-07-24 09:54] LABS: CREATININE 1.1 mg/dL (0.55-1.3); PHOSPHOROUS 3.7 mg/dL (2.5-4.9)
[2024-07-24 09:55] LABS: BILIRUBIN,TOTAL 0.5 mg/dL (0.2-1); TOT PROT 7.2 g/dl (6.4-8.2)
[2024-07-24 11:32] LABS: PH,URINE 6.5 (5.0-8.0); URINE APPEARANCE CLEAR; URINE BILIRUBIN NEGATIVE (NEGATIVE); URINE COLOR YELLOW; URINE GLUCOSE (UA) NEGATIVE (NEGATIVE); URINE KETONE TRACE (NEGATIVE); URINE LEUK ESTERASE TRACE (NEGATIVE); URINE NITRITE NEGATIVE (NEGATIVE); URINE PROTEIN TRACE (NEGATIVE)
[2024-07-24 13:30] LABS: EPI CELLS 5 /uL (0-25.1); HYALINE CASTS 1 /uL (0-3.1); URINE BACTERIA 43 /uL (0-1359); URINE RBC 39 /uL (0-23.9)
[2024-07-24 13:31] LABS: YEAST NONE SEEN (NEGATIVE)
[2024-07-25 08:40] LABS: ABSOLUTE IMMATURE GRANULOCYTES 0.02 x10^3/uL (0.0-0.031); BASOPHILS # 0.02 x10^3/uL (0.01-0.08); EOSINOPHIL % 4.8 % (0.8-7.0); EOSINOPHILS # 0.37 x10^3/uL (0.04-0.54); HEMATOCRIT 34.5 % (40.1-51.0); HEMOGLOBIN 10.8 g/dL (13.7-17.5); MCHC 31.3 g/dl (32.3-36.5); MEAN CELL VOLUME 95.8 fl (79.0-92.2); MEAN PLT VOLUME 12.3 fl (9.4-12.4); MONOCYTE # 0.33 x10^3/uL (0.30-0.82); MONOCYTE % 4.2 % (5.3-12.2); PLATELET COUNT 226 x10^3/uL (163-337); RDW 13.7 % (12.2-16.4)
[2024-07-25 09:00] LABS: POTASSIUM 3.6 mmol/L (3.5-5.1)
[2024-07-25 09:07] LABS: BLOOD UREA NITROGEN 17.9 mg/dL (7-18)
[2024-07-25 09:08] LABS: ALBUMIN 2.7 g/dl (3.4-5.0); CALCIUM 9.5 mg/dL (8.5-10.1); MAGNESIUM 2.3 mg/dL (1.8-2.4)
[2024-07-25 09:11] LABS: PHOSPHOROUS 3.3 mg/dL (2.5-4.9)
[2024-07-25 09:12] LABS: BILIRUBIN,TOTAL 0.4 mg/dL (0.2-1); TOT PROT 6.8 g/dl (6.4-8.2)
[2024-07-25] MEDS: ENOXAPARIN NA (PORCINE) 40 MG/0.4 ML DISP.SYRIN SQ SCH (09:40)
[2024-07-26 11:06] VITALS: BP 125/62; PULSE 94; TEMP 98.8
== END 2024-07-26 15:00 | disposition home or self-care (01) | DRG 194 ==
LOC: JER 11:08 → JERBED 16:24 → J6S 19:47
PROVIDERS: ADMIT Internal Medicine; ATTEND Internal Medicine
DX: J10.1 Influenza due to other identified influenza virus with other respiratory manifestations (principal); E87.0 Hyperosmolality and hypernatremia; N39.0 Urinary tract infection, site not specified; F01.50 Vascular dementia, unspecified severity, without behavioral disturbance, psychotic disturbance, mood disturbance, and anxiety; E78.5 Hyperlipidemia, unspecified; E11.9 Type 2 diabetes mellitus without complications; E86.0 Dehydration; R74.01 Elevation of levels of liver transaminase levels; R13.10 Dysphagia, unspecified; Z93.1 Gastrostomy status
CPT/HCPCS: 0241U-QW; 36415; 71045-TC-FY; 71260-TC; 74177-TC; 80048; 80053; 80061; 81003; 82550; 82553; 82570; 82803; 83605; 83735; 84100; 84300; 84439; 84443; 84484; 85025; 85027; 85610; 85730; 86803; 86850; 86900; 86901; 87040; 87086; 87389; 93005; 93010; 94640; 99285-25; J0131; Q9967